=== PATIENT | male | born 1980 | race Caucasian/White ===

== ENCOUNTER 2021-01-09 22:56 | Emergency (ER) | payer OTHER ==
[~2021-01-09] VITALS: Ht 170.2 cm; Wt 86.0 kg
[2021-01-09 23:46] LABS: BASOPHILS % 0.7 % (0.0-2.0); EOSINOPHILS % 1.7 % (0.0-5.0); HEMATOCRIT. 45.6 % (42.0-52.0); HEMOGLOBIN. 15.7 g/dL (14.0-18.0); LYMPHOCYTES % 21.5 % (20.0-50.0); MEAN CORPUSCULAR VOLUME 84.6 fL (80.0-94.0); MEAN PLATELET VOLUME 8.5 fl (7.4-10.4); MONOCYTES % 11.4 % (2.0-8.0); NEUTROPHILS % 64.7 % (40.0-76.0); PLATELET 268 x1000/uL (130-400); RED CELL DISTRIBUTION WIDTH 16.1 % (11.6-14.6)
[2021-01-09 23:55] LABS: CHLORIDE 104 mEq/L (98-107)
[2021-01-10 01:06] VITALS: BP 165/100
== END 2021-01-10 01:08 | disposition home or self-care (01) ==
LOC: ER 22:56
DX: E86.0 Dehydration (principal); R00.2 Palpitations
CPT/HCPCS: 36415; 80053; 84443; 84484; 85025; 93005; 99283